=== PATIENT | male | born 1960 | race Caucasian/White ===

== ENCOUNTER → 2016-09-21 | Outpatient (CLI) | payer BC ==
[~2016-09-21] MED LIST: ALLEGRA-D1 TAB.SR1; AMITRIPTYLINE H25 MG PO; ATIVAN PO; CIPRO; CRESTOR; CRESTOR10 MG PO; DEXILANT60 MG; DEXILANT60 MG PO; DEXLANSOPRAZOLE 60 MG; GABAPENTIN300 MG PO; HYCODAN60 ML 5MG/ PO; LIPITOR40 MG PO; LORAZEPAM1 MG PO; MOBIC PO; SINGULAIR PO; TAMIFLU75 M1 PO; TRAMADOL HCL50 M2 PO; [UNRECOGNIZED DRUG - CODE]
--- NOTE | ~2016-09-21 | CR63 ---
[facility] A Service of [facility] & [facility] RADIOLOGY TEXT RESULTS PATIENT: DAILY ARAUJO LOCATION: [facility] : 62 UNIT #: [id number] AGE: [address]: Raiza Tubbs MD SEX: M ORDER DR: [id number] [facility] [address] [place], [place] [address] [id number] O MR#: [id number] Acc #: [id number] NAME: DAILY ARAUJO. : 1960 SEX: M STUDY DATE/TIME: 09/21/2016 8:57 UNIT: [facility] ROOM: STUDY DESCRIPTION: CR Chest 2 View Attending Physician: Raiza Tubbs M.D. Ordering Physician: Raiza Tubbs M.D. MEDICAL IMAGING REPORT This report is preliminary unless electronic signature is present EXAM Chest, 09/21/2016, [facility]. HISTORY 56-year-old male patient cough and congestion past 2 weeks. Past smoker. COMPARISON Chest, 04/16/2014. FINDINGS Two-view chest demonstrates normal cardiac size and configuration. Hilar structures and mediastinal contours are preserved. Bilateral lungs are expanded and clear. IMPRESSION Negative and stable chest. Dictated by... John Viera M.D. THIS IS AN ELECTRONICALLY VERIFIED REPORT John Viera M.D. at 09/21/2016 1:00 PM MAGUI/alfred TD: 09/21/2016 11:29 JOB #: [id number] MEDICAL IMAGING REPORT Page 1 of 1 COPY
== END | disposition home or self-care (01) ==
LOC: CRAD 08:32
DX: J40 Bronchitis, not specified as acute or chronic (principal); R05 Cough
CPT/HCPCS: 71020